=== PATIENT | male | born 1980 | race Native Hawaiian/Other Pacific Islander ===

== ENCOUNTER 2016-08-27 16:01 | Emergency (ER) | payer OTHER ==
[~2016-08-27] VITALS: Ht 180.3 cm; Wt 122.5 kg
[2016-08-27] MEDS ORDERED: TRAM50TA PO (16:43)
[2016-08-27] MEDS ORDERED: AMBIEN5 MG PO (16:43)
[2016-08-27] MEDS ORDERED: ROBAXIN-750750 MG PO (16:43)
[2016-08-27] MEDS ORDERED: NAPROSYN500 MG OR (16:44)
[2016-08-27 18:13] VITALS: BP 144/99; TEMP 98
== END 2016-08-27 18:17 | disposition home or self-care (01) ==
LOC: ED 16:01
DX: S97.82XA Crushing injury of left foot, initial encounter (principal); W20.8XXA Other cause of strike by thrown, projected or falling object, initial encounter; Y92.89 Other specified places as the place of occurrence of the external cause
CPT/HCPCS: 99282